=== PATIENT | female | born 1985 | race Caucasian/White ===

== ENCOUNTER 2016-11-18 08:59 | Day surgery (SDC) | payer SELFPAY ==
[~2016-11-18 08:59] MED LIST: BACTRIM DS TAB1 EAC2 PO; CELEXA20 M2 PO; CLARITIN10 MG; DIFLUCAN100 M1 PO; FLEXERIL10 MG PO; FOLIC ACID1 M1 PO; GLUCOPHAGE XR500 M1 PO; IBUPROFEN800 M1 PO; LAMICTAL25 M2 PO; NORCO 5-325 TA1 EACH PO; PROBIOTIC PO; SYNTHROID25 MC1 PO
[2016-11-18 10:31] LABS: HCT-HEMATOCRIT 40.6 % (34.0-49.0); HGB-HEMOGLOBIN 13.9 gm/dl (12.0-15.5)
== END 2016-11-18 13:10 ==
LOC: SRG 08:59 → SHSB 09:06 → ORW 10:40 → SHSB 11:35
PROVIDERS: Anesthesiology
PROC: 0XQ4XZZ Repair Right Axilla, External Approach (ICD-10-PCS; principal; 2016-11-18)
PROC: 0HBBXZZ Excision of Right Upper Arm Skin, External Approach (ICD-10-PCS; 2016-11-18)
DX: L08.89 Other specified local infections of the skin and subcutaneous tissue (principal); E66.9 Obesity, unspecified; E03.9 Hypothyroidism, unspecified; F41.9 Anxiety disorder, unspecified; F32.9 Major depressive disorder, single episode, unspecified; J45.909 Unspecified asthma, uncomplicated; F17.210 Nicotine dependence, cigarettes, uncomplicated; Z79.2 Long term (current) use of antibiotics; Z79.84 Long term (current) use of oral hypoglycemic drugs; Z79.899 Other long term (current) drug therapy; Z88.5 Allergy status to narcotic agent; Z90.49 Acquired absence of other specified parts of digestive tract; Z90.89 Acquired absence of other organs; Z98.890 Other specified postprocedural states
CPT/HCPCS: J0690; J2405